=== PATIENT | male | born 1950 | race Caucasian/White ===

== ENCOUNTER 2022-07-04 10:09 | Outpatient (CLI) | payer MEDICARE, SELFPAY ==
--- NOTE | ~2022-07-04 | XR_ITS ---
XR lumbar spine 2-3V DATE: 07/04/2022 10:36 INDICATION: Check position of hardware placed in 2009. Spinal stenosis. TECHNIQUE: AP, lateral and coned lateral lumbosacral views COMPARISON: None FINDINGS: There is postoperative change including L5 laminectomy and bilateral pedicle screws and ajith s and interbody spinal fusion at L5-S1. No hardware fracture or displacement is noted. No fracture or bone destruction is evident. There is moderate degenerative disc disease throughout th e lumbar spine Bilateral iliolumbar ligament calcification. The sacral iliac joints are intact. IMPRESSION: Status post L5 laminectomy and bilateral posterior and interbody surgical fusion at L5-S1 Reviewed, dictated and finalized at location A. PUMPER IMPRESSION: Status post L5 laminectomy and bilateral posterior and interbody wright rgical fusion at L5-S1
== END 2022-07-04 10:10 | disposition home or self-care (01) ==
PROVIDERS: PCP Internal Medicine; Visit Provider Neurological Surgery
DX: M47.816 Spondylosis without myelopathy or radiculopathy, lumbar region (principal); M48.061 Spinal stenosis, lumbar region without neurogenic claudication; M48.062 Spinal stenosis, lumbar region with neurogenic claudication; Z98.1 Arthrodesis status
CPT/HCPCS: 72100

== ENCOUNTER 2022-08-01 10:19 | Outpatient (CLI) | payer MEDICARE, SELFPAY ==
--- NOTE | 2022-08-01 10:29 | ECG_ITS ---
Measurements Intervals [place] Rate: 67 P: 73 MA: 153 QRS: 66 QRSD: 90 T: 40 QT: 369 QTc: 390 Interpretive Statements SINUS RHYTHM NORMAL ELECTROCARDIOGRAM NO PREVIOUS ECG AVAILABLE FOR COMPARISON Electronically Signed On 08-02-2022 8:14:47 TUBE BENDING MACHINE OPERATOR by Beto Delgado M.D.
== END 2022-08-01 10:20 | disposition home or self-care (01) ==
PROVIDERS: PCP Internal Medicine; Visit Provider Neurological Surgery
DX: Z01.818 Encounter for other preprocedural examination (principal)
CPT/HCPCS: 93005

== ENCOUNTER 2022-09-08 07:57 | Outpatient (CLI) | payer MEDICARE, SELFPAY ==
[2022-09-08 08:41] LABS: Basophils Percent Auto 0.6 % (0.2-1.2); Eosinophils Absolute Auto 0.1 K/mm3 (0-0.3); Hematocrit 45.4 % (42.0-52.0); Hemoglobin 14.7 g/dL (14.0-18.0); Immature Granulocyte Absolute 0.03 K/mm3 (0.00-0.031); Immature Granulocyte Percent A 0.5 % (0-0.5); Lymphocytes Absolute Auto 1.54 K/mm3 (0.9-3.2); Lymphocytes Percent Auto 23.7 % (18.3-44.2); Mean Corpuscular HGB Conc 32.4 g/dl (32-36); Mean Corpuscular Hemoglobin 31.3 pg (26-34); Mean Corpuscular Volume 96.6 fl (80-100); Mean Platelet Volume 10.4 fl (7.4-10.4); Monocytes Absolute Auto 0.6 K/mm3 (0.1-0.6); Monocytes Percent Auto 9.8 % (2.6-8.5); Neutrophils Absolute Auto 4.1 K/mm3 (1.3-6.7); Neutrophils Percent Auto 63.4 % (45.5-73.1); Platelet Count Result 218 k/mm3 (150-375); Red Cell Distribution Width 12.4 % (11.5-14.5); White Blood Count 6.5 K/mm3 (4.5-10.0)
== END 2022-09-08 07:58 | disposition home or self-care (01) ==
LOC: ANHSURGERY 08:02
PROVIDERS: PCP Family Medicine; Visit Provider Neurological Surgery
DX: M47.816 Spondylosis without myelopathy or radiculopathy, lumbar region (principal); Z01.818 Encounter for other preprocedural examination
CPT/HCPCS: 36415; 85025; 86850; 86900; 86901

== ENCOUNTER 2022-09-15 21:12 | Inpatient (IN) | payer MEDICARE, SELFPAY ==
--- NOTE | 2022-09-07 09:43 | PC.NURSE ---
Report to the Outpatient Waiting Room, entrance under the green pavilion located off [facility], at time ___729____ on date ___09/15/22____. Planned Procedure Time: __929 . Time changes happen often and if your time is changed the preop area will call you the afternoon before. - You and your visitor will be asked to self-screen and do not enter if you have any COVID symptoms. - Only one visitor is requested with a max of two and NO children visitors are allowed at this time. - The patient visitor may be requested to leave or wait in car when not with patient due to distancing restrictions. - A mask is optional within the hospital. Patients may have clear liquids (water, carbonated beverages, clear teas, apple juice) until 3 hours prior to surgery with a maximum of 20 ounces. - No food from midnight until time of surgery - Infants may have breast milk until 4 hours before surgery, infant formula 6 hours prior to surgery. - Children will be allowed to drink immediately following surgery. If applicable, please bring a bottle or sippy cup to assist with drinking. Juice, water, soda, and popsicles are readily available. For infants on formula, please bring formula the day of surgery. Pacifiers are allowed. Take the following medications with a SIP of water the morning of surgery: __AMLODIPINE,BENAZEPRIL,METOPROLOL Medications to discontinue per physician __WIFE STATES PLAVIX 7 DAYS PRE OP PER DR PACK LAST DOSE 09/07/22 ALL VITAMINS AND SUPPLEMENTS 3 DAYS PRE OP LAST DOSE 09/11/22 Please no make-up, nail equatorial guinean, hairspray, perfume, deodorant, or body powder the day of surgery. No jewelry (including any body piercings) or valuables the day of surgery, leave them at home. Please take a shower or bath the night before, or the morning of, surgery with an antibacterial soap. Wear comfortable, loose fitting clothing. Children are encouraged to wear pajamas. - Jewelry must be removed prior to entering the operating room. Rings and piercings that are not removed may be cut off. - The hospital will not accept responsibility for valuables. - Please leave all valuables, including medications, at home the day of surgery. If you are going home after surgery, a licensed pick up driver must drive you home. - NO public transportation without another adult if you receive anesthesia. - We recommend that an adult stay with you for 24 hours following discharge. - We also recommend that you do not drive, make important decision, drink alcoholic beverages, or take any drugs that were not prescribed by your health care provider for at least 24 hours after your discharge time. Follow any additional instructions given to you from your surgeon. If you or anyone in your household have experienced Covid symptoms in the past week, please notify your surgeon or the nurse liaison at the phone number below for possible testing. Telephone instructions given to _PATIENT'S ARNALDO and asked if any additional questions and then verbalized understanding. Patient advised to call surgeon office or pre surgery nurse liaison [phone] if any additional questions.
[2022-09-07 09:52] VITALS: BMI 34.1
--- NOTE | 2022-09-14 14:19 | WPDANESEPPF ---
Anes - Initial Pre Proc Eval Procedure: Operation Date: 09/15/22 12:30 Proposed Procedures p L3-4, L4-5 Posterior Lumbar Interbody Fusion - Torres Cooper MD Date/Time: 09/14/22 14:19 Surgeon: Torres Cooper MD Pre Op Diagnosis: L3-4, L4-5, Spondylosis Stenosis Listhesis Patient Data Age: 71 Gender: M Height: 1.7 m Weight: 98.9 kg Allergies Allergy/AdvReac Type Severity Reaction Status Date / Time No Known Allergies Allergy Verified 09/07/22 11:07 Home Medications Medication Instructions Recorded Confirmed Type amlodipine 10 mg tablet 10 mg PO DAILY 03/09/22 09/15/22 History atorvastatin 20 mg tablet 20 mg PO DAILY 03/09/22 09/15/22 History benazepril 20 mg tablet 20 mg PO DAILY 03/09/22 09/15/22 History clopidogrel 75 mg tablet 75 mg PO DAILY 03/09/22 09/15/22 History levothyroxine 25 mcg tablet 25 mcg PO DAILY 03/09/22 09/15/22 History (Euthyrox) metoprolol succinate 50 mg 50 mg PO DAILY 03/09/22 09/15/22 History tablet,extended release 24 hr ranolazine 1,000 mg 1,000 mg PO Q12H 03/09/22 09/15/22 History tablet,extended release,12 hr tamsulosin 0.4 mg capsule 0.4 mg PO DAILY 03/09/22 09/15/22 History nitroglycerin 0.3 mg sublingual 0.3 mg sublingual Q5M PRN Chest 04/20/22 09/15/22 History tablet Pain coQ10 (ubiquinol) 200 mg capsule 200 mg PO DAILY 09/07/22 09/15/22 History naproxen sodium 220 mg capsule 660 mg PO Q12H PRN Pain 09/07/22 09/15/22 History (Aleve) ECG: Date of Service: 08/01/22 Procedure(s): CA 12 lead EKG Accession Number(s): [id number] cc: ~ ? Measurements Intervals? [place]? Rate: ? 67 ? P:? 73 PA: ? 153? QRS:? 66 QRSD: ? 90 ? T:? 40 QT: ? 369? QTc:? 390? Interpretive Statements SINUS RHYTHM NORMAL ELECTROCARDIOGRAM NO PREVIOUS ECG AVAILABLE FOR COMPARISON Electronically Signed On 08-02-2022 8:14:47 TERRAZZO INSTALLER by Beto Delgado M.D. Patient hx anesthesia problems: none Family hx anesthesia problems: none Results Review: All pre-operative results and documents have been reviewed as part of the pre-operative evaluation. [facility] Past Medical History Medical History (Updated 09/14/22 @ 14:21 by Jose Cárdenas MD) Arthritis CAD (coronary artery disease) Diverticulitis Foraminal stenosis of lumbar region Hypercholesterolemia Hypertension Hypothyroid IBS (irritable bowel syndrome) Lumbar spondylosis Lumbar stenosis with neurogenic claudication Obesity SHEFALI on CPAP Sleep apnea TIA (transient ischemic attack) Surgical History Surgical History H/O laminectomy Family History Family History Other Breast cancer Diabetes mellitus Heart disease Hypertension Social History Social History Smoking packs per day: 1 Smoking cigarettes per day: 20.0 Years smoked: 20 Smoking pack-years: 20.00 Smoking status: Former smoker Tobacco type: cigarettes Smoking end date: 08/23/94 Alcohol intake: current Substance use: never Substance use type: does not use Living arrangements: with family Spiritual care concerns: No Anes - Eval Final PreProcedure Day of Procedure 09/14/22 14:19 Patient weight: obese Heart: regular rate and rhythm Lungs: clear to auscultation and normal air movement Airway: Mallampati scale class II Neurological: alert and oriented Last oral intake: >/= 8 hours ASA classification: III Emergent: no Anesthetic plan: proceed Anesthesia type and monitoring: general ETT Results Review: All pre-operative results and documents have been reviewed as part
[2022-09-15] VITALS (14 sets, daily range): BP systolic 122–150; BP diastolic 64–80; PULSE 67–96; RESP 12–18; TEMP 36.4–36.6; O2SAT 91–100
--- NOTE | ~2022-09-15 | XR_ITS ---
EXAMINATION: XR fluoroscopy no charge DATE: 09/15/2022 15:16 FLOORING GRADER INDICATION: L3-4, L4-5 POSTERIOR LUMBAR INTERBODY FUSION . TECHNIQUE: 1 fluoroscopic images were of the lateral lumbar spine were obtained during L3-4, L4-5 pos terior lumbar interbody fusion performed by the surgeon. I was not present in the operating room. Flu oroscopy exposure time was 5.8 seconds. Air Kerma 2.2761 mGy. DAP 0.0451 mGym2. COMPARISON: None FINDINGS: Skin retractors overlie the posterior soft tissues. Bilateral pedicle screws at L3, L4, and L5. Inter body devices at L3-4 and L4-5. IMPRESSION: Fluoroscopic documentation of L3-4, L4-5 posterior lumbar interbody fusion. Please refer to the opera tive note for complete procedural details . Reviewed, dictated and finalized at location K. RING GRADER IMPRESSION: Fluoroscopic documentation of L3-4, L4-5 posterior lumbar interbody fusion. Ple ase refer to the operative note for complete procedural details .
[2022-09-15] MEDS: LACTATED RINGERS 1,000 ML 30 ML IV CONT ×2 (11:16→20:08)
--- NOTE | 2022-09-15 11:17 | SUR.PREOP ---
PATIENT AND GIVEN BRACE
--- NOTE | 2022-09-15 12:30 | SUR.PREOP ---
updated patient about time delay
--- NOTE | 2022-09-15 13:15 | SUR.PREOP ---
patient updated for second time on surgery delay
--- NOTE | 2022-09-15 14:07 | PM.IMHP ---
H&P: HPI History of Present Illness Date/Time: 09/15/22 14:07 Chief Complaint: Yoel is a 71-year-old gentleman with back and leg pain related to junctional issues at L3-4 L4-5 above a previous L5-S1 fusion who presents for L3-4 L4-5 posterior lumbar interbody fusion. He has not changed appreciably since we last saw him. He does not have specific muscle group weakness or dermatomal numbness. Is not having bowel or bladder difficulty. Review of Systems Review of Systems: Patient denies shortness of breath, cough, fever, chills, nausea, vomiting, weight loss, leaking, chest pain, dysuria. He has back and leg pain as above. He has back stiffness as above. He is otherwise negative on 12 systems. [facility] Past Medical History Medical History Arthritis CAD (coronary artery disease) Diverticulitis Foraminal stenosis of lumbar region Hypercholesterolemia Hypertension Hypothyroid IBS (irritable bowel syndrome) Lumbar spondylosis Lumbar stenosis with neurogenic claudication Obesity SHEFALI on CPAP Sleep apnea TIA (transient ischemic attack) Surgical History Surgical History H/O laminectomy Family History Family History Other Breast cancer Diabetes mellitus Heart disease Hypertension Social History Social History Smoking packs per day: 1 Smoking cigarettes per day: 20.0 Years smoked: 20 Smoking pack-years: 20.00 Smoking status: Former smoker Tobacco type: cigarettes Smoking end date: 08/23/94 Alcohol intake: current Substance use: never Substance use type: does not use Living arrangements: with family Spiritual care concerns: No Meds Home Medications and Allergies Home Medications Medication Instructions Recorded Confirmed Type amlodipine 10 mg tablet 10 mg PO DAILY 03/09/22 09/15/22 History atorvastatin 20 mg tablet 20 mg PO DAILY 03/09/22 09/15/22 History benazepril 20 mg tablet 20 mg PO DAILY 03/09/22 09/15/22 History clopidogrel 75 mg tablet 75 mg PO DAILY 03/09/22 09/15/22 History levothyroxine 25 mcg tablet 25 mcg PO DAILY 03/09/22 09/15/22 History (Euthyrox) metoprolol succinate 50 mg 50 mg PO DAILY 03/09/22 09/15/22 History tablet,extended release 24 hr ranolazine 1,000 mg 1,000 mg PO Q12H 03/09/22 09/15/22 History tablet,extended release,12 hr tamsulosin 0.4 mg capsule 0.4 mg PO DAILY 03/09/22 09/15/22 History nitroglycerin 0.3 mg sublingual 0.3 mg sublingual Q5M PRN Chest 04/20/22 09/15/22 History tablet Pain coQ10 (ubiquinol) 200 mg capsule 200 mg PO DAILY 09/07/22 09/15/22 History naproxen sodium 220 mg capsule 660 mg PO Q12H PRN Pain 09/07/22 09/15/22 History (Aleve) Allergies Allergy/AdvReac Type Severity Reaction Status Date / Time No Known Allergies Allergy Verified 09/07/22 11:07 Vital Signs Vital Signs - 24 hr 09/15/22 10:37 Temperature 97.5 F L Pulse Rate 67 Respiratory Rate 18 Blood Pressure 150/74 H Pulse Oximetry 99 Oxygen Delivery Room Air Exam Narrative: Strength is 5/5 in all muscle groups of the bilateral lower extremities. Sensation is intact to light touch throughout the lower extremities. Breathing is unlabored, he makes sentences verbally without difficulty. Regular rate and rhythm Assessment and Plan Assessment and plan (1) Foraminal stenosis of lumbar region: Code(s): M48.061 - Spinal stenosis, lumbar region without neurogenic claudication Status: Acute (2) Lumbar spondylosis: Code(s): M47.816 - Spondylosis without myelopathy or radiculopathy, lumbar region Status: Acute (3) Lumbar stenosis with neurogenic claudication: Code(s): M48.062 - Spinal stenosis, lumbar region with neurogenic claudication Status: Acute Plan Mr. Reid
--- NOTE | 2022-09-15 14:10 | WPDHPUPDATE1 ---
History and Physical Update Update Date/Time: 09/15/22 14:10 History and Physical has been reviewed, including an updated exam of the patient. There are NO changes in the patient's condition. Risks, benefits, and alternatives have been discussed and questions answered. Patient agrees to proceed with procedure.
[2022-09-15] MEDS: ceFAZolin 2 GM/D5W 50 ML 2 GM/50 ML BAG IVPB (14:35)
[2022-09-15] MEDS: BUPIVACAINE/EPINEPHRINE 0.5% 30 ML VIAL 15 ML INFILTRATE (15:08)
[2022-09-15] MEDS: ceFAZolin SODIUM 1 GM VIAL 2 GM IV PUSH (18:30)
[2022-09-15] MEDS: fentaNYL CITRATE INJ (*CRX) 100 MCG/2 ML VIAL 25 MCG IV PUSH ×4 (20:14→20:34)
[2022-09-15] MEDS: ONDANSETRON INJ 4 MG/2 ML VIAL IV PUSH (21:41)
[2022-09-15] MEDS: DOCUSATE SODIUM 100 MG CAPSULE PO (21:42)
[2022-09-15] MEDS: HYDROmorphone HCL INJ (*CRX) 1 MG/ML SYR 0.5 MG IV PUSH (21:48)
[2022-09-15] MEDS: KCL 20 MEQ/D5/0.45% SOD CHL 1,000 ML 100 ML IV CONT (21:48)
--- NOTE | 2022-09-15 21:53 | ADMGEN ---
This patient, Yoel Reid, was admitted to Medical Room 346-01. Patient/family oriented to hospital policies and general routines including ID bracelet, bed and alarms, visiting hours, pain management, procedures, bathroom and other care routines, personal items, smoking policy, room service/diet, and visiting hours. Information on how to activate the Rapid Response Team has been discussed. Patient/Family are encouraged to report perceived risks to care and to ask questions if they do not understand what they are told or what they should do.
[2022-09-16] VITALS (8 sets, daily range): BP systolic 119–162; BP diastolic 49–71; PULSE 75–86; RESP 16–18; TEMP 36.6–36.8; O2SAT 94–99
[2022-09-16] MEDS: HYDROmorphone HCL INJ (*CRX) 1 MG/ML SYR 0.5 MG IV PUSH (01:24)
[2022-09-16] MEDS: HYDROcodone/acetaminophen (*CRX) 10-325 MG TABLET 1 TAB PO ×4 (03:08→21:19)
[2022-09-16] MEDS: diazePAM INJ (*CRX) 10 MG/2 ML SYRINGE 5 MG IV PUSH (04:29)
[2022-09-16 05:55] LABS: Hematocrit 40.5 % (42.0-52.0); Hemoglobin 13.1 g/dL (14.0-18.0); Mean Corpuscular HGB Conc 32.3 g/dl (32-36); Mean Corpuscular Hemoglobin 32.1 pg (26-34); Mean Corpuscular Volume 99.3 fl (80-100); Mean Platelet Volume 10.7 fl (7.4-10.4); Platelet Count Result 278 k/mm3 (150-375); Red Blood Count 4.08 M/mm3 (4.6-6.20); Red Cell Distribution Width 12.7 % (11.5-14.5); White Blood Count 21.2 K/mm3 (4.5-10.0)
[2022-09-16] MEDS: ONDANSETRON INJ 4 MG/2 ML VIAL IV PUSH (06:38)
[2022-09-16] MEDS: CYCLOBENZAPRINE HCL 10 MG TABLET PO ×3 (06:38→17:29)
[2022-09-16] MEDS: LEVOTHYROXINE SODIUM 25 MCG TABLET PO (06:38)
[2022-09-16] MEDS: KCL 20 MEQ/D5/0.45% SOD CHL 1,000 ML 100 ML IV CONT (06:42)
[2022-09-16] MEDS: HYDROmorphone HCL INJ (*CRX) 1 MG/ML SYR IV PUSH ×2 (06:46→09:06)
--- NOTE | 2022-09-16 07:36 | WPDANESPN ---
Anes - Prog Note Post-Op Date/Time: 09/16/22 07:36 Cardiovascular status: normal Respiratory status: normal Airway patency: baseline Mental status: baseline Post-Op hydration status: normal Vital Signs: Last Vital Signs Temp 98.1 F 09/16/22 04:12 Pulse 75 09/16/22 04:12 Resp 16 09/16/22 04:12 BP 119/49 L 09/16/22 04:12 Pulse Ox 94 09/16/22 04:12 O2 Del Method Nasal Cannula 09/16/22 03:55 O2 Flow Rate 2 09/16/22 03:55 Pain Score (VAS): 5-10 I/O: Intake & Output 09/15/22 09/15/22 09/16/22 15:59 23:59 07:59 Intake Total 50 600 1000 Output Total 400 290 Balance 50 200 710 Laboratory Tests 09/16/22 05:33 09/16/22 05:33 WBC 21.2 H RBC 4.08 L Hgb 13.1 L Hct 40.5 L MCV 99.3 MCH 32.1 MCHC 32.3 RDW 12.7 Plt Count 278 MPV 10.7 H Post-procedural complaints: none Patient Feedback: Patient satisfied with anesthetic care.
[2022-09-16] MEDS: DOCUSATE SODIUM 100 MG CAPSULE PO ×2 (09:05→20:44)
[2022-09-16] MEDS: amLODIPine BESYLATE 5 MG TABLET 10 MG PO (09:06)
[2022-09-16] MEDS: RANOLAZINE 500 MG TAB.ER.12H 1000 MG PO ×2 (09:06→20:44)
[2022-09-16] MEDS: lisinopriL 20 MG TABLET PO ×2 (09:06→20:45)
[2022-09-16] MEDS: ATORVASTATIN 20 MG TABLET PO (09:06)
[2022-09-16] MEDS: METOPROLOL SUCCINATE EXT REL 50 MG TABCR PO (09:07)
[2022-09-16] MEDS: TAMSULOSIN HCL 0.4 MG CAPSULE PO (09:07)
--- NOTE | 2022-09-16 10:47 | PCPTNOTE ---
Attempted to see patient for physical therapy initial evaluation. Pt is 10/10 pain when attempting to put weight though his BLE with a 2 person assist. RN notified, neuro notified.
--- NOTE | 2022-09-16 10:47 | PCOTNOTE ---
Attempted to see pt for occupational therapy evaluation. Pt. in significant pain and unable to mobilize from EOB due to increased pain and nerve symptoms. Pt. returned to bed for safety. Nursing aware.
--- NOTE | 2022-09-16 11:35 | PC.NURSE ---
Orders received to get pt up this morning. RN got pt up to edge of bed and applied back brace. Therapy then came in to work with pt and unsuccessfully attempted to stand pt up. Pt screaming out in pain, stating the feeling of electrical pulses shooting to legs. Therapy assisted pt back to bed and did not remove back brace. RN removed back brace with the help of DATA INTEGRATION DEVELOPER. Dr. Cooper notified.
[2022-09-16] MEDS: HYDROcodone/acetaminophen (*CRX) 5-325 MG TABLET 1 TAB PO ×2 (13:16→17:29)
--- NOTE | 2022-09-16 21:28 | W.PM.PROC2 ---
Procedure Note - Detailed Date of Procedure 09/16/22 Pre-op Diagnosis L3-4, L4-5, Spondylosis Stenosis Listhesis Post-op Diagnosis Same Procedure Performed L3-4 and L4-5 laminectomy and bilateral facetectomy, L3-4 L4-5 complete diskectomy and interbody arthrodesis utilizing titanium interbody device and local autograft, removal of posterior instrumentation, L5-S1 placement of pedicle screw instrumentation L3-4 and L4-5, posterolateral inner transverse fusion L3-4 L4-5 Surgeon Torres Cooper MD Production Support Engineer Gary Anesthesia General Indications Mr. Reid is a 71-year-old gentleman with back and leg pain related to the above pathology presents for decompression fusion at L3-4 L4-5 and revision of the posterior instrumentation L5-S1. Description of Procedure Patient was brought to the operating room in the supine position, was sedated, intubated and placed under general anesthesia routine fashion previous into the prone position on and open Danish table. The area of operation his back was examined, marked for incision, prepped and draped in routine sterile fashion. Incision was marked over the L3 through S1 spinous processes in the midline. This area was injected with 0.5% lidocaine with [id number] epinephrine. Intravenous antibiotics given prior to incision. Incision was made with a 10 blade scalp about the lumbodorsal fascia. A subperiosteal dissection of the muscle soft tissue away the spinous process lamina at L3-5 was performed with a subperiosteal elevator and Bovie cautery. A verifying x-rays obtained to verify the level operation. The L3 and L4 spinous processes were removed with a Joanna rongeur. Kerrison punches, curved curette and a Leksell rongeur were used to remove lamina in the midline and to the soft contents of the canal in countered. A Midas Burton drill was used to resect the pars bilaterally at L3 and L4. The inferior check the process of L3 and L4 could then be removed bilaterally. These plus spinous processes were stripped free of soft tissue morselized later use as interbody autograft. The instrumentation at L5 and S1 was removed using the appropriate drivers. This was done with some difficulty but was finally performed. The screws, rods and caps were all removed. Kerrison punches and curved curettes were used to deflate plane with the dura and removed bone and ligament flush with the pedicles and through the L3-4 L4-5 foramina widely decompressing the exiting nerve roots. With the thecal sac retracted and protected the disc spaces in her bilaterally using an 11 blade scalpel. Scrapers of various sizes, curettes of various configurations, pituitary rongeur and a rasp were used to remove as much cartilaginous endplate and disc material as possible down to bleeding cortical flat surfaces on the opposing bones. The disc spaces were then sized an appropriately size interbody devices were chosen. These were 10 mm devices at L3-4 and 11 mm devices at L5 4 5. These were filled with local autograft bone. The disc space was likewise filled with local autograft bone medially and anteriorly using the tamp in funnel for that purpose. The interbody devices were then placed to a 2-3 mm countersink bilaterally at each of these levels. CSF leaking was noted twice during the case. Once during the dissection in the L5-S1 level. This was closed primarily using a 4-0 Nurolon suture and no more leaking was noted during the case. Another occurred during placement of the interbody device on the right at L4-5. This was also closed with 4-0 Nurolon suture and a muscle graft beneath the suture. No more leaking was noted from that location either. Pedicle screw instrumentation was performed at L3-5 by observing and palpating the pedicle while a hole was made in the superior to the process above the pedicle using a Midas Burton drill with an a.m. 8 bit. The pedicle was then cannulated with a pedicle probe, checked for continuity with ball prob
--- NOTE | 2022-09-16 21:45 | WPDNEUROSGPN ---
Progress Note: A&P Assessment and Plan (1) Foraminal stenosis of lumbar region: Code(s): M48.061 - Spinal stenosis, lumbar region without neurogenic claudication Status: Acute (2) Lumbar spondylosis: Code(s): M47.816 - Spondylosis without myelopathy or radiculopathy, lumbar region Status: Acute (3) Lumbar stenosis with neurogenic claudication: Code(s): M48.062 - Spinal stenosis, lumbar region with neurogenic claudication Status: Acute Plan Mr. Reid is doing well status post L3-4 L4-5 posterior lumbar interbody fusion. He participated with physical occupational therapy today and out of bed. He has had no headache and no leaking from his wound. He appears neurologically intact. He will continue to work with therapy and make progress towards disposition. Subjective Date/time seen: 09/16/22 21:45 Interval history: Mr. Reid is postop day 1 status post L3-4 L4-5 posterior lumbar interbody fusion. He is doing well. He had some strange pain from his neck down to his back and through his arms and legs which is now largely abated. He still has some numbness in his hands. This began this morning or overnight and persisted for most of the day but has now seemed to a broken. He is not having any issues with his lower extremities. He is not having any bowel or bladder difficulty. Exam Narrative: Strength is normal the bilateral lower extremities to direct confrontation. Sensation is intact light touch throughout the lower extremities. His dressing is clean, dry and intact. Objective Data Vital Signs Vital Signs: Vital Signs - 24 hr 09/15/22 21:57 09/15/22 22:12 09/15/22 22:42 Temperature 97.8 F 97.8 F 97.8 F Pulse Rate 78 78 78 Respiratory Rate 16 16 16 Blood Pressure 125/68 123/78 122/78 Pulse Oximetry 94 94 94 Oxygen Delivery Oxygen Flow Rate 09/15/22 23:12 09/16/22 00:05 09/16/22 03:55 Temperature 97.9 F 97.9 F 98 F Pulse Rate 84 86 75 Respiratory Rate 16 18 18 Blood Pressure 124/77 123/71 145/68 H Pulse Oximetry 96 96 97 Oxygen Delivery Nasal Cannula Oxygen Flow Rate 2 09/16/22 04:12 09/16/22 09:07 09/16/22 08:12 Temperature 98.1 F 98.2 F Pulse Rate 75 75 79 Respiratory Rate 16 16 Blood Pressure 119/49 L 162/64 H Pulse Oximetry 94 99 Oxygen Delivery Oxygen Flow Rate 09/16/22 08:15 09/16/22 14:18 09/16/22 12:12 Temperature 98.1 F Pulse Rate 84 Respiratory Rate 18 Blood Pressure 140/71 Pulse Oximetry 99 98 Oxygen Delivery Nasal Cannula Room Air Oxygen Flow Rate 2 09/16/22 20:14 Temperature 97.8 F Pulse Rate 86 Respiratory Rate 16 Blood Pressure 129/58 L Pulse Oximetry 95 Oxygen Delivery Oxygen Flow Rate Intake/Output Intake/Output: Intake & Output 09/13/22 09/14/22 09/15/22 09/16/22 23:59 23:59 23:59 23:59 Intake Total 650 2650 Output Total 400 3930 Balance 250 -1280 Meds/Results Medications: Active Medications Generic Name Dose Route Start Last Admin Trade Name Freq PRN Reason Stop Dose Admin Hydrocodone Bitart/Acetaminophen 1 tab 09/15/22 21:12 09/16/22 17:29 Hydrocodone/Acetaminophen (*Crx) 5-325 Mg Tablet PO 1 tab Q4H PRN Administration Mild Pain (1-3) Hydrocodone Bitart/Acetaminophen 1 tab 09/15/22 21:12 09/16/22 21:19 Hydrocodone/Acetaminophen (*Crx) 10-325 Mg Tablet PO 1 tab Q4H PRN Administration Moderate Pain (4-6) Al Hydrox/Mg Hydrox/Simethicone 20 ml 09/15/22 21:12 Mag Hydrox/Al Hydrox/Simeth 30 Ml Udc PO Q4H PRN Indigestion/Heartburn Amlodipine Besylate 10 mg 09/16/22 09:00 09/16/22 09:06 Amlodipine Besylate 5 Mg Tablet PO 10 mg DAILY AIDA Administration Atorvastatin Calcium 20 mg 09/16/22 09:00 09/16/22 09:06 Atorvastatin 20 Mg Tablet PO 20 mg DAILY AIDA Administration Bisacodyl 10 mg 09/15/22 21:12 Bisacodyl 10 Mg Suppository RECTAL DAILY PRN Constipation Cyclo
[2022-09-17 00:12] VITALS: BP 126/77; PULSE 79; RESP 18; TEMP 36.8; O2SAT 94
[2022-09-17 04:51] VITALS: BP 113/58; PULSE 84; RESP 16; TEMP 36.8; O2SAT 95
[2022-09-17] MEDS: KCL 20 MEQ/D5/0.45% SOD CHL 1,000 ML 30 ML IV CONT (05:51)
[2022-09-17] MEDS: LEVOTHYROXINE SODIUM 25 MCG TABLET PO (05:52)
[2022-09-17] MEDS: HYDROcodone/acetaminophen (*CRX) 10-325 MG TABLET 1 TAB PO ×3 (08:50→19:30)
[2022-09-17] MEDS: ATORVASTATIN 20 MG TABLET PO (08:52)
[2022-09-17] MEDS: lisinopriL 20 MG TABLET PO ×2 (08:52→20:44)
[2022-09-17] MEDS: amLODIPine BESYLATE 5 MG TABLET 10 MG PO (08:52)
[2022-09-17] MEDS: DOCUSATE SODIUM 100 MG CAPSULE PO ×2 (08:52→20:44)
[2022-09-17 08:53] VITALS: PULSE 88
[2022-09-17] MEDS: METOPROLOL SUCCINATE EXT REL 50 MG TABCR PO (08:53)
[2022-09-17] MEDS: TAMSULOSIN HCL 0.4 MG CAPSULE PO (08:54)
[2022-09-17] MEDS: RANOLAZINE 500 MG TAB.ER.12H 1000 MG PO ×2 (08:54→20:44)
[2022-09-17 21:28] VITALS: BP 134/66; PULSE 90; RESP 18; TEMP 36.4; O2SAT 96
[2022-09-18 05:29] VITALS: BP 133/67; PULSE 97; RESP 18; TEMP 36.6; O2SAT 97
[2022-09-18] MEDS: LEVOTHYROXINE SODIUM 25 MCG TABLET PO (05:48)
[2022-09-18] MEDS: HYDROcodone/acetaminophen (*CRX) 5-325 MG TABLET 1 TAB PO ×2 (05:48→09:40)
[2022-09-18] MEDS: CYCLOBENZAPRINE HCL 10 MG TABLET PO ×2 (05:48→15:38)
[2022-09-18] MEDS: TAMSULOSIN HCL 0.4 MG CAPSULE PO (09:40)
[2022-09-18] MEDS: amLODIPine BESYLATE 5 MG TABLET 10 MG PO (09:40)
[2022-09-18 09:41] VITALS: PULSE 90
[2022-09-18] MEDS: METOPROLOL SUCCINATE EXT REL 50 MG TABCR PO (09:41)
[2022-09-18] MEDS: RANOLAZINE 500 MG TAB.ER.12H 1000 MG PO (09:41)
[2022-09-18] MEDS: DOCUSATE SODIUM 100 MG CAPSULE PO (09:41)
[2022-09-18] MEDS: ATORVASTATIN 20 MG TABLET PO (09:41)
[2022-09-18] MEDS: lisinopriL 20 MG TABLET PO (09:41)
[2022-09-18 15:30] VITALS: BP 109/54; PULSE 97; RESP 16; TEMP 36.7; O2SAT 98
[2022-09-18] MEDS: HYDROcodone/acetaminophen (*CRX) 10-325 MG TABLET 1 TAB PO (15:38)
--- NOTE | 2022-09-28 09:04 | PM.DS ---
DS: Admitting Diagnosis Discharge Date 09/18/22 Admitting Diagnosis L3-4 L4-5 spondylosis, spondylolisthesis, stenosis DS: Discharge Diagnosis Discharge Diagnosis Plan L3-4 and L4-5 spondylosis, spondylolisthesis and stenosis DS: Summary Hospital Course Hospital Course: the patient was taken to the operating room on 09/15/2022 with the aforementioned operation was performed without complication. The patient went to the floor postoperatively. By postoperative day 1 he was eating, ambulating, emptying his bladder and his pain was under control with by mouth pain medicine. His Cooper catheter and drain were removed. His wound remained clean dry and intact. He was afebrile with stable vital signs. He was therefore allowed to be discharged home. Status at Discharge Functional status at discharge: independent ambulation Time Spent with Patient Time attestation: Total time spent providing and/or coordinating discharge services: Time spent: Less than 30 minutes Exam Narrative: Strength is normal the bilateral lower extremities to direct confrontation. Sensation is intact to light touch throughout the lower extremities. Dressing is clean, dry and intact. Gait, Station and transfers are independent and steady but antalgic. Discharge Plan Discharge Attending physician on discharge: Torres Cooper Consulting providers: Adriel Bear Discharging Clinician: Torres Cooper Anticipated Discharge Date/Time: 09/18/22 15:11 Patient Disposition: Home, Self-Care Activity: may shower Diet: as tolerated Wound Care Instructions: follow printed instructions Discharge Instructions: INSTRUCTIONS AFTER YOUR LUMBAR LAMINECTOMY/DECOMPRESSION/FORAMINOTOMY/DISCECTOMY Incisions may be closed with either: Steri-strips (let them wear off on their own). Surgical glue (let it peel off on its own). Sutures or nettie (call the office for an appointment to have these removed). Keep the incision dry for the first three days after surgery. Never apply ointments or lotions to the incision. The incision should be checked daily. Notify the office if there is drainage, redness, or if you have fever with a temperature of over 100 degrees. After the third postop day, it is okay to shower. Let soap and water run over your incision. No soaking in a tub, hot tub, or pool for at least one month. You are encouraged to walk as much as comfortable, with assistance as needed. For example, it may be beneficial to walk short distances hourly during the waking hours and gradually increase walking during your recovery period. Fatigue can be common. Avoid any bending, heavy lifting, twisting movements. You have an pszeh-or-pfl-pound lift restriction until further advised by your physician (A gallon of milk weighs eight pounds). Make frequent position changes, avoiding long periods of sitting. Try not to sit more than 30 minutes at a time. You may engage in sexual activity in two weeks as tolerated. No housework, especially vacuuming, making beds, or doing laundry until seen in the office. You may walk stairs carefully. Minimize car rides for two weeks. Driving can usually be resumed within two weeks; however, you may not drive at that time if still taking pain medications. Once you are discharged from the hospital, please call the office to set up your postop appointment. The physician may order pain medication and/or muscle relaxers. As time goes by, you should require less of these. Always take your medication as ordered, and only if needed. If you take more than prescribed, it will not be refilled early. If you feel you require narcotic medication refill, kindly give the office a 72-hour notice. No refills are given over the weekend. Anti-inflammatory meds (like Ibuprofen, Aleve, Advil, Motrin) may be used if approved by your surgeon. Over the counter Tylenol products may be used but use caution mixing Tylenol with your pa
== END 2022-09-18 16:25 | disposition home or self-care (01) | DRG 455 ==
LOC: ANH3MED 21:16
PROVIDERS: Admitting Provider Neurological Surgery; PCP Family Medicine; Visit Provider Neurological Surgery
PROC: (CPT 22612; principal; 2022-09-15 12:30)
DX: M48.062 Spinal stenosis, lumbar region with neurogenic claudication (principal); M47.816 Spondylosis without myelopathy or radiculopathy, lumbar region; M43.16 Spondylolisthesis, lumbar region; M19.90 Unspecified osteoarthritis, unspecified site; I25.10 Atherosclerotic heart disease of native coronary artery without angina pectoris; I10 Essential (primary) hypertension; E78.00 Pure hypercholesterolemia, unspecified; E03.9 Hypothyroidism, unspecified; K58.9 Irritable bowel syndrome, unspecified; G47.33 Obstructive sleep apnea (adult) (pediatric); E66.9 Obesity, unspecified; Z68.34 Body mass index [BMI] 34.0-34.9, adult; Z86.73 Personal history of transient ischemic attack (TIA), and cerebral infarction without residual deficits; Z87.891 Personal history of nicotine dependence
CPT/HCPCS: 36415; 85027; 97116; 97161; 97165; 97535; 99199; A9270; C1713; J0330; J0690; J1100; J1170; J2250; J2405; J2704; J2710; J3010; J3360; J3480; J7120

== ENCOUNTER 2022-11-02 08:46 | Outpatient (CLI) | payer MEDICARE, SELFPAY ==
--- NOTE | ~2022-11-02 | XR_ITS ---
EXAMINATION: XR lumbar spine 2-3V DATE: 11/02/2022 09:10 INDICATION: Spinal stenosis, lumbar region without neurogenic claudication. TECHNIQUE: 3 views of lumbar spine were obtained. COMPARISON: Lumbar spine radiographs 07/04/2022 FINDINGS: L5 is a transitional segment. There is 6 degrees dextrocurvature of thoracolumbar spine. Th ere is 3 mm retrolisthesis of L1 on L2 and L2 on L3 and 3 mm anterolisthesis of L4 on L5. There are c hanges of anterior fusion procedure from L3-L4 through L5-S1 with interbody devices. There are change s of posterior fusion procedure from L3 to L5 with pedicle screws. Vertebral body heights are normal. There is mildly decreased disc height at L1-L2 and moderately decreased disc height at L2-L3. 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 IMPRESSION: 1. Moderate lumbar spondylosis. 2. Anterior fusion procedure from L3 to S1 and posterior fusion procedure from L3 to L5. Reviewed, dictated and finalized at location A.
== END 2022-11-02 08:47 | disposition home or self-care (01) ==
PROVIDERS: PCP Family Medicine; Visit Provider Neurological Surgery
DX: M47.816 Spondylosis without myelopathy or radiculopathy, lumbar region (principal); M48.061 Spinal stenosis, lumbar region without neurogenic claudication; M48.062 Spinal stenosis, lumbar region with neurogenic claudication; Z98.1 Arthrodesis status
CPT/HCPCS: 72100